=== PATIENT | male | born 1965 | race Caucasian/White ===

== ENCOUNTER 2019-07-15 17:49 | Observation (INO) | payer MEDICARE, OTHER ==
[2019-07-15] MEDS ORDERED: Metoclopramide HCl 10 MG/2 ML VIAL ONE (19:20)
[2019-07-15 19:23] LABS: #Basophils 0.1 thou/uL (0.0-0.2); #Eosinphils 0.1 thou/uL (0.0-0.7); #Lymphocytes 0.4 thou/uL (1.20-3.40); #Monocytes 0.5 thou/uL (0.11-0.59); #Neutrophils 8.5 thou/uL (1.40-6.50); %Basophils 0.7 % (0.0-1.0); %Eosinophils 0.7 % (0.0-10.0); %Lymphocytes 4.1 % (21.0-51.0); %Monocytes 5.1 % (0.0-10.0); %Neutrophils 89.4 % (42.0-75.0); Hemoglobin 15.8 g/dL (14.0-18.0); Mean Corpuscular HGB CONC 35.6 g/dL (32.0-36.0); Mean Corpuscular Hemoglobin 32.4 pg (27.0-31.0); Mean Platelet Volume 8.6 fL (7.4-10.4); Platelet Count 182 thou/uL (130-400); RBC Distribution Width 11.9 % (11.5-14.5); Red Blood Cell (RBC) Count 4.89 mill/uL (4.70-6.10); White Blood Cell (WBC) Count 9.5 thou/uL (4.8-10.8)
[2019-07-15 19:45] LABS: ALT (SGPT) 32 U/L (8-55); AST (SGOT) 15 U/L (5-34); Albumin 4.4 g/dL (3.5-5.0); Alkaline Phosphatase 66 U/L (40-150); Anion Gap 17 mmol/L (10-20); BUN (Urea Nitrogen) 13 mg/dL (8.4-25.7); Bilirubin, Total 0.7 mg/dL (0.2-1.2); CK (CPK) 120 U/L (30-200); Calc. Creatinine Clearance 0 mL/min (70-130); Calcium 9.1 mg/dL (7.8-10.44); Carbon Dioxide 22 mmol/L (22-29); Chloride 103 mmol/L (98-107); Estimated GFR-MDRD 89; Globulin 2.6 g/dL (2.4-3.5); Glucose 159 mg/dL (70-105); Potassium 3.7 mmol/L (3.5-5.1); Sodium 138 mmol/L (136-145)
[2019-07-15 19:59] LABS: Bilirubin Negative (Negative); Blood, Urine Negative (Negative); Clarity Clear (Clear); Glucose, Urine (Dipstick) 70 mg/dL (Negative); Leukocyte Negative Leu/uL (Negative); Nitrite Negative (Negative); Protein, Urine (Dipstick) 20 mg/dL (Neg-Trace); Urobilinogen Normal mg/dL (Less than 2)
[2019-07-15] MEDS ORDERED: Acetaminophen 500 MG TAB ONE (20:55)
--- NOTE | 2019-07-15 21:39 | RAD ---
Chest AP view INDICATION: Fever COMPARISON: None FINDINGS: Lungs:The lungs are clear Cardiac silhouette pulmonary vasculature:The cardiomediastinal silhouette appears within normal limit s. Pleural spaces:No pleural effusion or pneumothorax is demonstrated. Upper abdomen:No abnormality seen. Osseous structures: No acute osseous abnormality. Additional findings:None. IMPRESSION: No acute cardiopulmonary abnormality.
[2019-07-15 23:16] LABS: Lactic Acid 1.4 mmol/L (0.5-2.2)
[2019-07-16] MEDS ORDERED: Acetaminophen 650 MG Suppository PR PRN (00:30)
[2019-07-16] MEDS ORDERED: Ondansetron ODT 4 MG TAB PO PRN (00:30)
[2019-07-16] MEDS ORDERED: Ondansetron PF 4 MG/2 ML Vial IVP PRN (00:30)
[2019-07-16] MEDS ORDERED: Acetaminophen 325 MG TAB PO PRN (00:30)
[2019-07-16 00:32] VITALS: BMI 43.2
[2019-07-16 06:49] LABS: #Lymphocytes 0.8 thou/uL (1.20-3.40); #Monocytes 0.6 thou/uL (0.11-0.59); #Neutrophils 4.3 thou/uL (1.40-6.50); %Basophils 0.1 % (0.0-1.0); %Eosinophils 0.8 % (0.0-10.0); %Lymphocytes 13.6 % (21.0-51.0); %Monocytes 10.4 % (0.0-10.0); %Neutrophils 75.1 % (42.0-75.0); Hemoglobin 14.8 g/dL (14.0-18.0); Mean Corpuscular HGB CONC 33.9 g/dL (32.0-36.0); Mean Corpuscular Hemoglobin 30.6 pg (27.0-31.0); Mean Corpuscular Volume 90.1 fL (78.0-98.0); Mean Platelet Volume 8.2 fL (7.4-10.4); Platelet Count 159 thou/uL (130-400); Red Blood Cell (RBC) Count 4.85 mill/uL (4.70-6.10); White Blood Cell (WBC) Count 5.7 thou/uL (4.8-10.8)
[2019-07-16 07:06] LABS: Anion Gap 12 mmol/L (10-20); BUN (Urea Nitrogen) 10 mg/dL (8.4-25.7); Calc. Creatinine Clearance 178 mL/min (70-130); Calcium 8.9 mg/dL (7.8-10.44); Carbon Dioxide 25 mmol/L (22-29); Chloride 108 mmol/L (98-107); Estimated GFR-MDRD 84; Glucose 157 mg/dL (70-105); Potassium 4.7 mmol/L (3.5-5.1); Sodium 140 mmol/L (136-145)
--- NOTE | 2019-07-16 07:22 | HP ---
PRIMARY CARE DOCTOR: [facility]. CODE STATUS: Full code. TIME OF EVALUATION: 11:39 p.m. CHIEF COMPLAINT: Nausea and vomiting. HISTORY OF PRESENT ILLNESS: A 53 years old male patient, with past medical history of MS and hypertension, presented to the ER after having nausea and vomiting that started last night with no clear triggers, no alleviating factors. He reported that probably he has some food that he ate that was causing him food poisoning. The patient was in a trip through the [facility] in the past few days. Symptoms were persistent, associated with fever, and symptoms were [id number]. As noted, the patient also has MS and also has urinary incontinence, but the symptoms from MS have not gotten worse during this presentation. REVIEW OF SYSTEMS: All systems reviewed were negative except for the findings mentioned above. PAST MEDICAL HISTORY: Multiple sclerosis, hypertension. PAST SURGICAL HISTORY: Bilateral LASIK. PSYCH HISTORY: PTSD. SOCIAL HISTORY: No alcohol, no drugs, no smoking history. FAMILY HISTORY: Hypertension, heart problems in the family; however, he has no problems, and colon cancer in the paternal side. KNOWN ALLERGIES: No known drug allergies. REPORTED MEDICATIONS: 1. Aspirin. 2. Modafinil. 3. Oxybutynin. 4. Duloxetine. 5. Dimethyl fumarate. 6. Cholecalciferol. 7. Lisinopril. 8. Risperidone. 9. Amlodipine. PHYSICAL EXAMINATION: VITAL SIGNS: On presentation, blood pressure 165/100 with heart rate 114, respiratory rate was 24, temperature 100.5. Pain was 0/10. Oxygen saturation was 94% on room air. The vital signs improved after hydration. GENERAL: The patient is alert, oriented, in no acute distress. HEENT: Eyes, normal conjunctivae. Dry oral mucosa. RESPIRATORY: Respiratory sounds are present, normal. No wheezing. No rales. CARDIOVASCULAR: The patient is mildly tachycardic. Tachycardic. Regular rhythm. No murmurs. No gallop. No edema. ABDOMEN: Soft, mildly tender. Normal bowel sounds. MUSCULOSKELETAL: Baseline range of motion and strength. No tenderness. SKIN: Warm, intact. No pallor. No rash. No redness. Capillary refill seems to be intact. NEURO: No evidence of any new focal weakness. The patient has some leg weakness in the left lower extremity, but this is his baseline. PSYCH: The patient is in good mood. Optimal judgment. IMAGING STUDIES: EKG was reviewed. The patient has sinus tachycardia at the rate of 118, VA 150, QRS 88, right axis deviation, QT corrected 451. LABORATORY DATA: Reviewed. The patient has white count 9.5, hemoglobin 15.8, MCV 91, platelet count 282. Chemistry; sodium 138, potassium 3.7, chloride 103, carbon dioxide 22, anion gap 17, BUN 13, creatinine 0.9, GFR 89, glucose 159. Lactic acid 2.2, second one 1.4. Troponin was negative. Urine was done, was negative. ASSESSMENT AND PLAN: The patient will be placed in the hospital with following medical problems; 1. Possible acute gastroenteritis. The patient has nausea and vomiting related to recent trip. The patient also has SIRS symptoms. We will treat symptomatically, we will be watching him for any source of infection that is not seen at this point. We will send procalcitonin. We will start antibiotics if procalcitonin is in the range of possible bacterial infection. Send cultures and follow. The patient is at high risk. Symptoms improved after aggressive hydration, could be related to dehydration. We will continue to monitor and treat accordingly. 2. History of multiple sclerosis. The patient has no new symptoms, is at baseline. We will continue to monitor. We will need support as inpatient. We will reconcile home medications. 3. Lactic acidosis on presentation that was mild, with lactic acid 2.3 and down to 1.4 after hydration. This could be related to possible underlying sepsis. We will continue to monitor as mentioned above. 4. Uncontrolled hypertension. Systolic blood pressure 165 and diastolic 100. We will reconcile home medications. We will not treat aggressively since the patient is septic and is at high risk for hypotension. 5. Systemic inflammatory response syndrome symptoms. The patient has heart rate 114 on presentation, temperature 100.5, unclear etiology at this point. Culture has been sent. Procalcitonin has been sent. Treatment depending on initial workup. We will monitor closely looking for any change in clinical status. 6. Deep venous thrombosis prophylaxis. 7. Urinary incontinence due to multiple sclerosis. The patient is at baseline . Job ID: [id number]
[2019-07-16] MEDS ORDERED: Aspirin Chewable 81 MG TAB PO SCH (09:00)
[2019-07-16] MEDS ORDERED: Oxybutynin ER 5 MG TAB PO PRN (09:00)
[2019-07-16] MEDS ORDERED: Dimethyl Fumarate [Tecfidera] 240 MG PO SCH (09:00)
[2019-07-16] MEDS ORDERED: Modafinil 100 MG TAB PO SCH (09:00)
[2019-07-16] MEDS ORDERED: busPIRone HCl 5 MG TAB PO SCH (09:00)
[2019-07-16] MEDS ORDERED: Dalfampridine [Ampyra] 10 MG PO SCH (09:00)
[2019-07-16] MEDS ORDERED: DULoxetine 60 MG CAP PO SCH (09:00)
[2019-07-16] MEDS ORDERED: Amlodipine 5 MG TAB PO SCH (09:00)
[2019-07-16] MEDS ORDERED: Enoxaparin Sodium 40 MG/0.4 ML SYRINGE SC SCH (09:00)
[2019-07-16] MEDS ORDERED: Lisinopril 20 MG TAB PO SCH (09:00)
[2019-07-16 13:21] VITALS: TEMP 98.7
[2019-07-16 14:30] VITALS: BP 169/103
--- NOTE | 2019-07-17 03:22 | DIS ---
DATE OF ADMISSION: 07/15/2019 DATE OF DISCHARGE: 07/16/2019 PRIMARY CARE PHYSICIAN: [facility], [place]. CHIEF COMPLAINT: Nausea and vomiting. PRINCIPAL DIAGNOSES: 1. Acute gastroenteritis. 2. Multiple sclerosis. DISCHARGE DIAGNOSES: 1. Acute gastroenteritis, with systemic inflammatory response syndrome criteria on admission, improving. 2. History of multiple sclerosis. 3. Lactic acidosis, resolving. 4. Essential hypertension. HOSPITAL COURSE: Mr. Villalta is a pleasant 53-year-old gentleman with a background history of multiple sclerosis as well as essential hypertension. He presented to the emergency room with nausea/vomiting/low-grade temperature, beginning the prior day. He has recently completed an extensive road trip through the [facility], endorsed some suspicion of dehydration in conjunction with his trip. At baseline, he has urinary incontinence secondary to his multiple sclerosis. He presented with constellation of low-grade temperature, nausea, vomiting, and was evaluated in the emergency department with recommendation for observational placement. White blood cell count notably normal at 9.5, left shift present, 89% neutrophils. Mild nonfasting hyperglycemia present, blood sugar 157. Initial lactic acid 2.3, normalizing to 1.4 following IV fluid administration. Procalcitonin level was reassuring at 0.3. Mr. Villalta improved with antiemetics/IV fluids/supportive care. He is tolerating a diet, fever is defervesced, able to tolerate his oral antihypertensives. At the time of my evaluation this afternoon, it appears stable for transition to home. He will monitor blood pressure at home, and see his [place] physician for followup in the next 1-2 weeks. He also expressed interest in establishing an ongoing physical therapy maintenance program for multiple sclerosis, he will follow up with his doctor in this regard as well. PHYSICAL EXAMINATION: On the day of discharge; LUNGS: Clear to auscultation bilaterally. HEART: Regular rate and rhythm. ABDOMEN: Soft, nontender, nondistended. EXTREMITIES: He has trace pedal edema, which is at baseline. DISCHARGE INSTRUCTIONS: 1. Activity, as tolerated. 2. Regular diet as tolerated. 3. Follow up with the [facility] in the next 7-14 days, bring blood pressure log for review. DISCHARGE MEDICATIONS: He has no new home medications. He will resume his prior home medicines which include: 1. Norvasc 7.5 mg p.o. once daily. 2. Aspirin 81 mg p.o. once daily. 3. Buspirone 15 mg p.o. once daily. 4. Vitamin D3 2000 units, take 2 tablets p.o. daily. 5. Cymbalta 60 mg p.o. once daily. 6. Lisinopril 40 mg p.o. once daily. 7. Modafinil 200 mg p.o. once daily. 8. Oxybutynin extended release 10 mg p.o. once daily. 9. Ampyra 10 mg p.o. b.i.d. 10. Tecfidera 240 mg p.o. twice daily. TIME SPENT: Time spent on discharge/discharge planning, 45 minutes. Job ID: [id number]
--- NOTE | 2019-07-20 15:00 | EKG ---
Test Reason : Blood Pressure : / mmHG Vent. Rate : 106 BPM Atrial Rate : 106 BPM P-R Int : 138 ms QRS Dur : 096 ms QT Int : 332 ms P-R-T Axes : 071 144 060 degrees QTc Int : 441 ms Sinus tachycardia Right axis deviation Abnormal ECG Confirmed by INDY ANNE ([id number]), index editor KHRIS BHAGAT ([id number]) on 07/20/2019 3:00:28 PM Referred By: Confirmed By:INDY ANNE
--- NOTE | 2019-07-20 15:00 | EKG ---
Test Reason : Blood Pressure : / mmHG Vent. Rate : 118 BPM Atrial Rate : 118 BPM P-R Int : 150 ms QRS Dur : 088 ms QT Int : 322 ms P-R-T Axes : 066 173 052 degrees QTc Int : 451 ms Sinus tachycardia Right axis deviation Abnormal ECG Confirmed by INDY ANNE ([id number]), editorial specialist KHRIS BHAGAT ([id number]) on 07/20/2019 3:00:19 PM Referred By: Confirmed By:INDY ANNE
== END 2019-07-16 15:55 | disposition home or self-care (01) ==
LOC: ERS 17:49 → 2NO 21:10
PROVIDERS: ADMIT Hospitalist; ATTEND Hospitalist
DX: K52.9 Noninfective gastroenteritis and colitis, unspecified (principal); G35 Multiple sclerosis; R32 Unspecified urinary incontinence; I10 Essential (primary) hypertension; E87.2 Acidosis; F43.10 Post-traumatic stress disorder, unspecified; R65.10 Systemic inflammatory response syndrome (SIRS) of non-infectious origin without acute organ dysfunction; Z79.82 Long term (current) use of aspirin; Z79.899 Other long term (current) drug therapy
CPT/HCPCS: 51701; 71045; 80048; 80053; 81003; 82550; 83605; 84145; 84484; 85025 ×2; 87040; 87086; 93005; 96365; 96366; 96372; 99285; G0378 ×3; 36415; J1650; J2765